=== PATIENT | male | born 2000 | race Caucasian/White ===

== ENCOUNTER 2021-07-12 02:44 | Inpatient (IN) ==
[2021-07-12 04:00] LABS: Basophils % 0.1 % (0.0-0.8); Eosinophils # 0.1 10*3/uL (0.0-0.87); Eosinophils % 0.8 % (0.00-10.9); Hematocrit 41.1 VOL% (42.0-52.0); Hemoglobin 13.9 GM/DL (14.0-18.0); Immature Granulocytes % 0.3 %; Immature Granulocytes Absolute 0.04 #; Lymphocytes # 1.3 10*3/uL (1.4-4.0); Lymphocytes % 11.1 % (21.2-54.2); Mean Corpuscular HGB Conc 33.8 GM/DL (32-36); Mean Corpuscular Volume 90.1 FL (87-102); Mean Platelet Volume 10.9 FL (9.6-12.0); Monocytes # 1.4 10*3/uL (0.11-0.8); Neutrophils % 75.7 % (38.7-73.9); Platelet Count 179 T/CUMM (130-400); Red Blood Count 4.56 MC/CUMM (3.8-5.5); Red Cell Distribution Width 12.5 % (9.3-17.3); White Blood Count 11.8 T/CUMM (4-12)
[2021-07-12 04:23] LABS: Alanine Aminotransferase 20 U/L (16-61); Albumin 3.5 G/DL (3.4-5.0); Alkaline Phosphatase 59 U/L (45-117); Aspartate Amino Transferase 14 U/L (0-37); Blood Urea Nitrogen 6 MG/DL (7-18); Calcium 9.5 MG/DL (8.5-10.1); Carbon Dioxide 31 MMOL/L (21-32); Chloride 102 MMOL/L (98-107); Estimated Glom Filtration Rate 159 ML/MIN; Glucose 112 MG/DL (74-106); Osmolality,Calculated 271.8 MOS/KG (273-304); Potassium 3.6 MMOL/L (3.5-5.1); Sodium 137 MMOL/L (136-145); Total Protein 8.3 G/DL (6.4-8.2)
[2021-07-12] MEDS ORDERED: CLINDAMYCIN INJ 600 MG/50 ML PREMIX IV STA (04:35)
[2021-07-12] MEDS ORDERED: SODIUM CHLORIDE 0.9% 2,500 ML IV STA (04:37)
[2021-07-12] MEDS ORDERED: MORPHINE 2 MG/1 ML SYRINGE IV STA (04:38)
[2021-07-12] MEDS ORDERED: ONDANSETRON 4 MG/2 ML VIAL IV ONE (04:38)
[2021-07-12] MEDS ORDERED: GLUCAGON 1 MG VIAL IM PRN (04:51)
[2021-07-12] MEDS ORDERED: ACETAMINOPHEN 325 MG TABLET PO PRN (04:51)
[2021-07-12] MEDS ORDERED: hydrALAZINE 20 MG/1 ML VIAL IV PRN (04:51)
[2021-07-12] MEDS ORDERED: ONDANSETRON 4 MG/2 ML VIAL IV PRN (04:51)
[2021-07-12] MEDS ORDERED: DEXTROSE 10% 250 ML BAG IV PRN (05:18)
[2021-07-12] MEDS: HYDROmorphone 1 MG/1 ML SYRINGE IV PRN ×5 (06:17→23:45)
[2021-07-12] MEDS: SODIUM CHLORIDE 0.9% 1,000 ML IV SCH ×4 (07:24→21:41)
[2021-07-12] MEDS: NICOTINE 21 MG/24 HR PATCH TRANSDERM SCH (08:44)
[2021-07-12] MEDS: CLINDAMYCIN INJ 600 MG/50 ML PREMIX IV SCH ×4 (08:44→21:41)
[2021-07-13] MEDS: CLINDAMYCIN INJ 600 MG/50 ML PREMIX IV SCH ×4 (04:06→21:44)
[2021-07-13] MEDS: HYDROmorphone 1 MG/1 ML SYRINGE IV PRN ×4 (04:06→20:04)
[2021-07-13 06:12] LABS: Basophils % 0.2 % (0.0-0.8); Eosinophils # 0.1 10*3/uL (0.0-0.87); Eosinophils % 0.8 % (0.00-10.9); Hematocrit 39.2 VOL% (42.0-52.0); Hemoglobin 13.3 GM/DL (14.0-18.0); Immature Granulocytes % 0.3 %; Immature Granulocytes Absolute 0.03 #; Lymphocytes # 1.6 10*3/uL (1.4-4.0); Lymphocytes % 14.8 % (21.2-54.2); Mean Corpuscular HGB Conc 33.9 GM/DL (32-36); Mean Corpuscular Volume 90.5 FL (87-102); Mean Platelet Volume 12.2 FL (9.6-12.0); Monocytes # 1.5 10*3/uL (0.11-0.8); Monocytes % 14.1 % (1.7-12.7); Neutrophils % 69.8 % (38.7-73.9); Platelet Count 142 T/CUMM (130-400); Red Blood Count 4.33 MC/CUMM (3.8-5.5); Red Cell Distribution Width 12.1 % (9.3-17.3); White Blood Count 10.8 T/CUMM (4-12)
[2021-07-13 06:33] LABS: Calcium 9.1 MG/DL (8.5-10.1); Osmolality,Calculated 271.7 MOS/KG (273-304); Potassium 3.7 MMOL/L (3.5-5.1)
[2021-07-13 06:39] LABS: Anisocytosis 1+; Macrocytosis Slight; Platelet Estimate Adequate
[2021-07-13] MEDS: SODIUM CHLORIDE 0.9% 1,000 ML IV SCH ×2 (06:49→16:13)
[2021-07-13] MEDS: NICOTINE 21 MG/24 HR PATCH TRANSDERM SCH (08:40)
[2021-07-13 14:27] LABS: % Iron Saturation 9.2 % (18-50)
[2021-07-13 14:36] LABS: Risk Ratio 2.42; Thyroid Stimulating Hormone 0.909 uIU/ml (0.358-3.74); VLDL Cholesterol 9.4 MG/DL
[2021-07-13 14:41] LABS: Folate 7.25 NG/ML (5.38-24.0)
[2021-07-13] MEDS: CHLORHEXIDINE 0.12% ORAL RINSE 60 ML BOTTLE SWISH/SPIT SCH (20:03)
[2021-07-14] MEDS: CLINDAMYCIN INJ 600 MG/50 ML PREMIX IV SCH ×2 (03:30→09:22)
[2021-07-14] MEDS: SODIUM CHLORIDE 0.9% 1,000 ML IV SCH ×2 (03:38→05:32)
[2021-07-14] MEDS: HYDROmorphone 1 MG/1 ML SYRINGE IV PRN ×2 (05:16→09:57)
[2021-07-14 05:39] LABS: Basophils % 0.1 % (0.0-0.8); Eosinophils # 0.2 10*3/uL (0.0-0.87); Eosinophils % 2.3 % (0.00-10.9); Hematocrit 35.8 VOL% (42.0-52.0); Hemoglobin 12.2 GM/DL (14.0-18.0); Immature Granulocytes % 0.4 %; Immature Granulocytes Absolute 0.03 #; Lymphocytes # 2.2 10*3/uL (1.4-4.0); Lymphocytes % 26.4 % (21.2-54.2); Mean Corpuscular HGB Conc 34.1 GM/DL (32-36); Mean Corpuscular Volume 89.3 FL (87-102); Mean Platelet Volume 10.7 FL (9.6-12.0); Monocytes # 1.2 10*3/uL (0.11-0.8); Monocytes % 14.3 % (1.7-12.7); Neutrophils % 56.5 % (38.7-73.9); Platelet Count 208 T/CUMM (130-400); Red Blood Count 4.01 MC/CUMM (3.8-5.5); Red Cell Distribution Width 11.9 % (9.3-17.3); White Blood Count 8.3 T/CUMM (4-12)
[2021-07-14 05:54] LABS: Calcium 9.3 MG/DL (8.5-10.1); Osmolality,Calculated 271.7 MOS/KG (273-304); Potassium 3.5 MMOL/L (3.5-5.1)
[2021-07-14] MEDS: NICOTINE 21 MG/24 HR PATCH TRANSDERM SCH (08:16)
[2021-07-14] MEDS: CHLORHEXIDINE 0.12% ORAL RINSE 60 ML BOTTLE SWISH/SPIT SCH (09:22)
[2021-07-14 11:36] VITALS: BP 149/69
== END 2021-07-14 16:10 | disposition home or self-care (01) | DRG 158 ==
LOC: N.ED 02:44 → N.EDINP 04:51 → N.3E 06:00
PROVIDERS: ADMIT Internal Medicine; ATTEND Internal Medicine